=== PATIENT | male | born 1950 | race Caucasian/White ===

== ENCOUNTER → 2021-12-29 | Outpatient (CLI) | payer MEDICARE ==
--- NOTE | 2021-12-29 14:20 | NM ---
EXAMINATION TYPE: NM parathyroid DATE OF EXAM: 12/29/2021 COMPARISON: NONE HISTORY: Hyperparathyroidism TECHNIQUE: Following administration of 24.9 mCi Tc99m Sestamibi. Anterior projection images of the neck and ches t were obtained 10 minutes and 3 hours post injection FINDINGS: Thyroid tracer washout: Initial images show heterogeneous uptake right thyroid lobe with diminished u ptake left thyroid lobe suggesting asymmetry or enlarged right thyroid lobe and absent or small left thyroid lobe. Correlate clinically and with thyroid ultrasound. Delayed images demonstrate perhaps so me washout from the upper pole of the right thyroid. Parathyroid uptake: Persistent heterogeneous uptake right thyroid bed. Normal uptake: There is physiological tracer uptake in the salivary glands. IMPRESSION: Abnormal study. Cannot exclude large right-sided parathyroid adenoma. Clinical correlatio n and follow-up advised.
== END | disposition home or self-care (01) ==
LOC: RADNMMAIN 10:22
PROVIDERS: ATTEND Family Medicine
DX: E21.3 Hyperparathyroidism, unspecified (principal)
CPT/HCPCS: 78070; A9500

== ENCOUNTER → 2023-06-22 | Outpatient (CLI) | payer MEDICARE ==
--- NOTE | 2023-06-22 16:18 | FL ---
EXAMINATION TYPE: FL barium swallow w video DATE OF EXAM: 06/22/2023 CLINICAL HISTORY: 71-year-old male R13.1, unspecified Dysphagia. Patient status post ectomy with stic yaw sensation and occasional cough. TECHNIQUE: Deglutition study is performed utilizing thin liquid barium, honey barium thick pudding, and barium coated cracker. Total fluoroscopy time 1 minute 18 seconds. Total images: None. Real-time fluoroscopy support was provided to speech pathology. Total DAP: 10 mGycm2. COMPARISON: None. FINDINGS: The oral and pharyngeal phases show satisfactory initiation and propagation with all modalities teste d. Normal mastication is seen with solid modalities tested. There is no evidence of penetration or aspiration with any modality tested. No significant pharyngeal residue was appreciated. IMPRESSION: No penetration or aspiration. Please refer to speech therapist notes for further details if necessary.
== END | disposition home or self-care (01) ==
LOC: RADFLMAIN 10:59
PROVIDERS: ATTEND Otolaryngology
DX: R13.10 Dysphagia, unspecified (principal); R05.8 Other specified cough
CPT/HCPCS: 74230